=== PATIENT | male | born 1955 | race Caucasian/White ===

== ENCOUNTER → 2017-05-22 | Outpatient (CLI) | payer OTHER ==
[~2017-05-22] MED LIST: IOPAMIDOL (ISOVUE-300) 100 ML BTL ONE
== END ==
LOC: FIMAGING 12:50
PROVIDERS: ATTEND Family Medicine
DX: R06.02 Shortness of breath (principal); R05 Cough
CPT/HCPCS: Q9967

== ENCOUNTER 2017-06-05 12:36 | Day surgery (SDC) | payer OTHER ==
[2017-06-05] MEDS ORDERED: ASPIRIN EC 325 MG TAB PO ONE (12:42)
[2017-06-05] MEDS ORDERED: FAMOTIDINE 20 MG TAB PO ONE (12:42)
[2017-06-05] MEDS ORDERED: NITROGLYCERIN 0.4 MG BTL SL PRN (12:42)
[2017-06-05] MEDS ORDERED: TEMAZEPAM 15 MG CAP PO PRN (12:42)
[2017-06-05] MEDS ORDERED: DIAZEPAM 5 MG TAB PO ONE (12:42)
[2017-06-05] MEDS ORDERED: ACETAMINOPHEN 325 MG TAB PO PRN (12:42)
[2017-06-05] MEDS ORDERED: NS 1,000 ML IV SCH (12:42)
[2017-06-05] MEDS ORDERED: diphenhydrAMINE 25 MG CAP PO ONE (12:42)
--- NOTE | 2017-06-05 13:01 | CPEKG ---
Heart Rate: 54 RR Interval: 1111 P-R Interval: 216 QRSD Interval: 108 QT Interval: 440 QTC Interval: 417 P [place]: 41 QRS [place]: -10 T Wave [place]: 14 EKG Severity - NORMAL ECG - EKG Impression: SINUS RHYTHM Electronically Signed By: Silvino Montejo 05-Jun-2017 14:57:19
[2017-06-05 13:19] LABS: PLATELET COUNT 252 10^3/uL (150-400)
[2017-06-05 13:26] LABS: INR 0.97 (0.83-1.16); PROTIME(PATIENT) 13.1 SEC (12.0-15.0)
[2017-06-05] MEDS ORDERED: LIDOCAINE 1% 300 MG/30 ML SDV ONE (14:01)
[2017-06-05] MEDS ORDERED: fentaNYL 100 MCG/2 ML INJ ONE (14:02)
[2017-06-05] MEDS ORDERED: VERAPAMIL 5 MG/2 ML VIAL ONE (14:02)
[2017-06-05] MEDS ORDERED: MIDAZOLAM 2 MG/2 ML VIAL ONE (14:02)
[2017-06-05] MEDS ORDERED: IOPAMIDOL (ISOVUE-370) 150 ML BTL IV ONE (14:02)
[2017-06-05] MEDS ORDERED: HEPARIN 10,000 UNIT/10 ML MDV (1,000 UNIT/ML) ONE (14:02)
--- NOTE | 2017-06-05 14:02 | PDPROPOC ---
Sedation Plan of Care Sedation Plan of Care: vital signs stable, mental status noted, patient educated of risks, benefits, alternatives, patient can tolerate sedation ASA Classification: ASA 2 Planned drugs: fentanyl, midazolam Mallampati Score: Class 1 Mallampati Reference Image: Patient passed 3-3-2 rule?: Yes
--- NOTE | 2017-06-05 14:02 | PDHPUP ---
History & Physical Update H&P update statement: This history and physical update is based on an assessment of the patient which was completed after admission or registration (within 24 hours), but prior to the surgery/procedure. H&P update: H&P reviewed & patient examined, no change in patient's condition since H&P completed
--- NOTE | 2017-06-05 15:13 | PDDXCAT ---
Diagnostic Cath Note - . Date: 06/05/17 [employer] Lab Technician: Noe Indication: other (Symptoms of exertional dyspnea. Abnormal stress test with 1/ [address] depression.) - Procedure Access: right wrist Procedure: left heart catheterization, coronary angiography, left ventriculogram - Materials Left Heart Cath size: 5F Left Heart Cath materials: JL4.0, AR mod Right Heart Cath size: 5F - Findings-Left Heart Catheterization LM: This is a dual ostium system with separate origins of the LAD and circumflex. LAD: The LAD is a large caliber transapical vessel. There is a single principal diagonal branch with 3 smaller diagonal branches. The LAD and its branch vessels is angiographically free of disease. LCX: The circumflex is a large caliber vessel. There are 2 large posterolateral branches and 2 obtuse marginal branches identified. The circumflex and its branch vessels are angiographically free of disease. RCA: The right coronary artery is small caliber and dominant. This vessel is angiographically free of disease. EDP: 25 mmHg. LVEF: Normal. EF 65-70%. Wall motion: Normal. Complications: None. Estimated blood loss: <50ml Closure method: TR Band Assessment: 1. Angiographically normal epicardial coronary arteries as described above. 2. Normal left ventricular systolic function without wall motion abnormalities. 3. Elevated end-diastolic pressure consistent with diastolic dysfunction. Plan: Medical therapy for cardiac risk factors. Intervention: None.
[2017-06-05] MEDS ORDERED: ONDANSETRON 4 MG/2 ML VIAL IVP PRN (15:20)
[2017-06-05] MEDS ORDERED: ATROPINE SULFATE 1 MG/10 ML SYR IVP PRN (15:20)
== END 2017-06-05 18:08 | disposition home or self-care (01) ==
LOC: FCATH 12:36
PROVIDERS: ATTEND Internal Medicine Cardiovascular Disease
PROC: B2151ZZ Fluoroscopy of Left Heart using Low Osmolar Contrast (ICD-10-PCS; principal; 2017-06-05)
PROC: B2111ZZ Fluoroscopy of Multiple Coronary Arteries using Low Osmolar Contrast (ICD-10-PCS; principal; 2017-06-05)
PROC: 4A023N7 Measurement of Cardiac Sampling and Pressure, Left Heart, Percutaneous Approach (ICD-10-PCS; principal; 2017-06-05)
DX: R07.9 Chest pain, unspecified (principal); R06.02 Shortness of breath; R94.39 Abnormal result of other cardiovascular function study; E11.9 Type 2 diabetes mellitus without complications; G47.33 Obstructive sleep apnea (adult) (pediatric); E03.9 Hypothyroidism, unspecified; Z90.5 Acquired absence of kidney; Z85.528 Personal history of other malignant neoplasm of kidney
CPT/HCPCS: 93005; 93458; C1769; J1644; J2250; J3010; Q9967